=== PATIENT | male | born 1930 | race Caucasian/White ===

== ENCOUNTER 2016-11-30 15:20 | Emergency (ER) | payer MEDICARE ==
[~2016-11-30 15:20] MED LIST: ACETAMINOPHEN325 MG PO; ADVAIR 250-501 EACH IH; ALBUTEROL HFA6.7 GM IH; ALBUTEROL HFA6.7 GM INH; ALBUTEROL2.5 MG/3 M NEB; CYMBALTA20 MG PO; DAILY VITE1 EACH PO; FLOMAX0.4 MG PO; KLONOPIN1 MG PO; LEVAQUIN500 MG PO; LIPITOR40 MG PO; LISINOPRIL2.5 MG PO; LORTAB 5-325 M1 EACH PO; MS CONTIN15 MG PO; NICOTINE TRANSD14 MG TD; NITROQUICK0.3 MG SL; NORCO 5-325 TA1 EACH PO; NYSTATIN5 ML PO; ORAMORPH SR15 MG PO; PLAVIX75 MG PO; PREDNISONE5 MG PO; PROSCAR5 MG PO; PROTONIX40 MG PO; REMERON15 MG PO; SEROQUEL50 MG PO; SPIRIVA18 MCG IH; VENTOLIN HFA8 GM IH; ZOFRAN4 MG PO; ZOLOFT50 MG PO
== END 2016-11-30 18:25 | disposition critical access hospital (66) ==
LOC: ER 15:20
DX: N17.9 Acute kidney failure, unspecified (principal); I21.4 Non-ST elevation (NSTEMI) myocardial infarction; E86.0 Dehydration; J18.9 Pneumonia, unspecified organism; N30.00 Acute cystitis without hematuria; F03.90 Unspecified dementia, unspecified severity, without behavioral disturbance, psychotic disturbance, mood disturbance, and anxiety; J44.9 Chronic obstructive pulmonary disease, unspecified; F41.9 Anxiety disorder, unspecified; I50.9 Heart failure, unspecified; F17.210 Nicotine dependence, cigarettes, uncomplicated; Z79.899 Other long term (current) drug therapy
CPT/HCPCS: 36415; 51702; 96361; 96374; J0696

== ENCOUNTER 2016-11-30 15:20 | Inpatient (IN) | payer MEDICARE ==
[~2016-11-30] VITALS: Ht 175.3 cm; Wt 59.4 kg
== END 2016-12-04 11:47 | disposition swing bed (61) | DRG 177 ==
LOC: ER 15:20 → ICU 18:26 → MED 12-01 18:55
PROVIDERS: ADMIT Internal Medicine
DX: J69.0 Pneumonitis due to inhalation of food and vomit (principal); K72.00 Acute and subacute hepatic failure without coma; N17.9 Acute kidney failure, unspecified; I50.20 Unspecified systolic (congestive) heart failure; I13.0 Hypertensive heart and chronic kidney disease with heart failure and stage 1 through stage 4 chronic kidney disease, or unspecified chronic kidney disease; E86.0 Dehydration; R74.8 Abnormal levels of other serum enzymes; G89.4 Chronic pain syndrome; N20.0 Calculus of kidney; F03.90 Unspecified dementia, unspecified severity, without behavioral disturbance, psychotic disturbance, mood disturbance, and anxiety; Z66 Do not resuscitate; J44.9 Chronic obstructive pulmonary disease, unspecified; I25.10 Atherosclerotic heart disease of native coronary artery without angina pectoris; Z98.61 Coronary angioplasty status; F41.9 Anxiety disorder, unspecified; F32.9 Major depressive disorder, single episode, unspecified; M19.90 Unspecified osteoarthritis, unspecified site; N40.0 Benign prostatic hyperplasia without lower urinary tract symptoms; R13.10 Dysphagia, unspecified; F17.210 Nicotine dependence, cigarettes, uncomplicated; E78.5 Hyperlipidemia, unspecified; I73.9 Peripheral vascular disease, unspecified; N18.9 Chronic kidney disease, unspecified; Z79.02 Long term (current) use of antithrombotics/antiplatelets; Z79.899 Other long term (current) drug therapy; I25.5 Ischemic cardiomyopathy; Z74.01 Bed confinement status
CPT/HCPCS: 36415; 92610; 92611; 93306; 97162-GP; 97166; J0456; J0696; J1650

== ENCOUNTER 2016-12-04 12:17 | Inpatient (IN) | payer MEDICARE ==
[~2016-12-04] VITALS: Ht 175 cm; Wt 55.9 kg
--- NOTE | 2016-12-05 12:27 | NUR ---
0900 PT. SCROTAL AREA RED RAW SENNSI CREAM APPLIED
--- NOTE | 2016-12-11 06:39 | NUR ---
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 HE STATED, "I NEED A MATCH TO LIGHT MY CIGARETTE," WHILE TALKING IN A MUMBLING VOICE. PT ALSO PULLED OUT HIS LEFT FA IV AND WAS FOUND WET. HE RECEIVED A NEW IV AND WAS CHANGED ALONG WITH ALL BED COVER.
--- NOTE | 2016-12-14 11:10 | NUR ---
1010 - CALLED TO ROOM BY PT DUE TO MENTAL STATUS CHANGE. MD PRESENT. RAPID RESPONSE CALLED BY STAFF. SEE RAPID RESPONSE FLOW SHEET.
--- NOTE | 2016-12-14 11:48 | NUR ---
1145 - REPORT CALLED TO SNEHA ABBOTT IN ICU.
--- NOTE | 2016-12-14 19:13 | NUR ---
1320 - PT LEFT FLOOR TO RADIOLOGY/ICU WITH NO S/S OF DISTRESS. ACCOMPANIED BY SNEHA FERNANDEZ.
== END 2016-12-14 13:35 | disposition critical access hospital (66) | DRG 177 ==
LOC: SWI 12:17
PROVIDERS: ADMIT Internal Medicine
PROC: 02HV33Z Insertion of Infusion Device into Superior Vena Cava, Percutaneous Approach (ICD-10-PCS; principal; 2016-12-14)
DX: J69.0 Pneumonitis due to inhalation of food and vomit (principal); A41.9 Sepsis, unspecified organism; I13.0 Hypertensive heart and chronic kidney disease with heart failure and stage 1 through stage 4 chronic kidney disease, or unspecified chronic kidney disease; I50.20 Unspecified systolic (congestive) heart failure; N17.9 Acute kidney failure, unspecified; E87.0 Hyperosmolality and hypernatremia; I95.9 Hypotension, unspecified; R19.7 Diarrhea, unspecified; N18.9 Chronic kidney disease, unspecified; R74.8 Abnormal levels of other serum enzymes; G89.4 Chronic pain syndrome; Z66 Do not resuscitate; E83.42 Hypomagnesemia; I25.10 Atherosclerotic heart disease of native coronary artery without angina pectoris; Z98.61 Coronary angioplasty status; F41.9 Anxiety disorder, unspecified; F32.9 Major depressive disorder, single episode, unspecified; M19.90 Unspecified osteoarthritis, unspecified site; N40.0 Benign prostatic hyperplasia without lower urinary tract symptoms; F03.90 Unspecified dementia, unspecified severity, without behavioral disturbance, psychotic disturbance, mood disturbance, and anxiety; R13.10 Dysphagia, unspecified; F17.210 Nicotine dependence, cigarettes, uncomplicated; E86.0 Dehydration; I95.2 Hypotension due to drugs; Z79.82 Long term (current) use of aspirin; Z79.899 Other long term (current) drug therapy
CPT/HCPCS: 87507; 97161-GP; 97166; C1751; J1650; Q9967

== ENCOUNTER 2016-12-14 14:03 | Inpatient (IN) | payer MEDICARE ==
[~2016-12-14] VITALS: Ht 175.3 cm; Wt 57.6 kg
--- NOTE | 2016-12-14 18:59 | NUR ---
1855 - PT ARRIVED TO FLOOR VIA BED. NO S/S OF DISTRESS. CALL PLUMMER WITHIN REACH. BED ALARM ON. CLOSE TO RN STATION.
== END 2016-12-17 13:10 | disposition home health service (06) | DRG 312 ==
LOC: SWI 14:03 → ICU 14:09 → MED 18:57
PROVIDERS: ADMIT Internal Medicine
PROC: 02HV33Z Insertion of Infusion Device into Superior Vena Cava, Percutaneous Approach (ICD-10-PCS; 2016-12-14)
PROC: 30233N1 Transfusion of Nonautologous Red Blood Cells into Peripheral Vein, Percutaneous Approach (ICD-10-PCS; principal; 2016-12-16)
DX: I95.1 Orthostatic hypotension (principal); I13.0 Hypertensive heart and chronic kidney disease with heart failure and stage 1 through stage 4 chronic kidney disease, or unspecified chronic kidney disease; I50.20 Unspecified systolic (congestive) heart failure; D64.9 Anemia, unspecified; N18.3 Chronic kidney disease, stage 3 (moderate); J44.9 Chronic obstructive pulmonary disease, unspecified; I25.10 Atherosclerotic heart disease of native coronary artery without angina pectoris; Z95.5 Presence of coronary angioplasty implant and graft; F41.9 Anxiety disorder, unspecified; F32.9 Major depressive disorder, single episode, unspecified; G89.29 Other chronic pain; N40.0 Benign prostatic hyperplasia without lower urinary tract symptoms; F03.90 Unspecified dementia, unspecified severity, without behavioral disturbance, psychotic disturbance, mood disturbance, and anxiety; Z79.899 Other long term (current) drug therapy
CPT/HCPCS: 87507; 97161-GP; 97166; J1650; P9021